=== PATIENT | female | born 1940 | race Caucasian/White ===

== ENCOUNTER 2016-11-27 16:13 | Outpatient (CLI) ==
[2016-07-12 11:57] VITALS: BMI 32.3
== END 2016-11-27 16:14 | disposition home or self-care (01) ==
LOC: AMBL 16:13
PROVIDERS: ATTEND Internal Medicine
DX: R42 Dizziness and giddiness (principal); R20.0 Anesthesia of skin; L89.309 Pressure ulcer of unspecified buttock, unspecified stage; R11.0 Nausea; F41.9 Anxiety disorder, unspecified; N39.0 Urinary tract infection, site not specified; F32.9 Major depressive disorder, single episode, unspecified; Z99.81 Dependence on supplemental oxygen

== ENCOUNTER 2017-05-19 13:10 | Outpatient (CLI) ==
[2016-07-12 11:57] VITALS: BMI 32.3
[2017-05-19 13:33] LABS: HEMATOCRIT 33.3 % (37.0-47.0); HEMOGLOBIN 11.6 g/dl (12.0-16.0); MEAN CORPUSCULAR HEMOGLOBIN 30.9 pg (27.0-31.0); MEAN CORPUSCULAR HGB CONC 34.8 (31.8-35.4); MEAN CORPUSCULAR VOLUME 88.8 fl (81.0-99.0); RED BLOOD COUNT 3.75 10^6/ul (4.20-5.40); WHITE BLOOD COUNT 13.19 K/ul (4.6-10.2)
[2017-05-19 14:15] LABS: ANION GAP 14.9; CALCIUM 8.9 mg/dL (8.2-10.2); POTASSIUM 3.9 mmol/L (3.5-5.10)
== END 2017-05-19 13:11 | disposition home or self-care (01) ==
LOC: LAB 13:10
PROVIDERS: ATTEND Internal Medicine Nephrology
DX: N18.3 Chronic kidney disease, stage 3 (moderate) (principal)
CPT/HCPCS: 36415; 80048; 85027

== ENCOUNTER 2017-05-23 14:53 | Outpatient (CLI) ==
[2017-05-23 15:07] VITALS: BMI 30.5
== END 2017-05-23 14:54 | disposition home or self-care (01) ==
LOC: DIETCN 14:53
PROVIDERS: ATTEND Psychiatry & Neurology Psychiatry
DX: F33.2 Major depressive disorder, recurrent severe without psychotic features (principal); F41.9 Anxiety disorder, unspecified; F01.50 Vascular dementia, unspecified severity, without behavioral disturbance, psychotic disturbance, mood disturbance, and anxiety; Z79.899 Other long term (current) drug therapy

== ENCOUNTER 2017-05-25 22:42 | Outpatient (CLI) | END 2017-05-25 22:43 | disposition home or self-care (01) | LOC: AMBL 22:42 | PROVIDERS: ATTEND Emergency Medicine | DX: R10.9 Unspecified abdominal pain (principal); R06.9 Unspecified abnormalities of breathing; F41.9 Anxiety disorder, unspecified; G47.00 Insomnia, unspecified; J44.9 Chronic obstructive pulmonary disease, unspecified; I50.9 Heart failure, unspecified; E11.9 Type 2 diabetes mellitus without complications ==

== ENCOUNTER 2017-06-09 12:30 | Outpatient (RCR) ==
[2016-07-12 11:57] VITALS: BMI 32.3
== END 2017-06-12 ==
LOC: NEWBEG 12:30
PROVIDERS: ATTEND Psychiatry & Neurology Psychiatry
DX: F33.2 Major depressive disorder, recurrent severe without psychotic features (principal); F41.9 Anxiety disorder, unspecified; F01.50 Vascular dementia, unspecified severity, without behavioral disturbance, psychotic disturbance, mood disturbance, and anxiety
CPT/HCPCS: 36415; 80048; 85027; 90792; 90837; 97802

== ENCOUNTER 2017-06-11 20:48 | Outpatient (CLI) | END 2017-06-11 20:49 | LOC: AMBL 20:48 | PROVIDERS: ATTEND Family Medicine | DX: R53.1 Weakness (principal); R68.89 Other general symptoms and signs ==

== ENCOUNTER 2017-06-19 13:21 | Outpatient (CLI) ==
[2017-06-19 13:39] LABS: ANION GAP 14.7; BUN/CREATININE RATIO 21.05; CALCIUM 9.2 mg/dL (8.2-10.2); CREATININE 1.52 mg/dL (0.60-1.30); POTASSIUM 4.7 mmol/L (3.5-5.10)
== END 2017-06-19 13:22 | disposition home or self-care (01) ==
LOC: NONPT 13:21
PROVIDERS: ATTEND Family Medicine
DX: E87.0 Hyperosmolality and hypernatremia (principal)
CPT/HCPCS: 80048

== ENCOUNTER 2017-06-22 12:46 | Outpatient (CLI) ==
[2017-06-22 13:04] LABS: ANION GAP 16.9; BUN/CREATININE RATIO 22.72; CALCIUM 9.8 mg/dL (8.2-10.2); CREATININE 1.1 mg/dL (0.60-1.30); POTASSIUM 3.9 mmol/L (3.5-5.10)
== END 2017-06-22 12:47 | disposition home or self-care (01) ==
LOC: NONPT 12:46
PROVIDERS: ATTEND Family Medicine
DX: R10.9 Unspecified abdominal pain (principal); E87.0 Hyperosmolality and hypernatremia
CPT/HCPCS: 80048

== ENCOUNTER 2017-06-26 14:59 | Outpatient (CLI) ==
[2017-06-26] MEDS ORDERED: SODIUM CHLORIDE 1,000 ML IV SCH (16:00)
[2017-06-26 16:01] LABS: ALBUMIN 4.2 g/dL (3.4-5.0); ALBUMIN/GLOBULIN RATIO 0.91; ANION GAP 13.2; BILIRUBIN,TOTAL 0.41 mg/dL (0.00-1.20); BUN/CREATININE RATIO 14.28; CALCIUM 10.7 mg/dL (8.2-10.2); CREATININE 1.26 mg/dL (0.60-1.30); POTASSIUM 4.2 mmol/L (3.5-5.10); TOTAL PROTEIN 8.8 g/dL (5.8-8.1)
[2017-06-26 16:12] VITALS: TEMP 97.8
[2017-06-26 17:11] VITALS: BP 182/100
== END 2017-06-26 15:00 | disposition home or self-care (01) ==
LOC: OUTPT 14:59
PROVIDERS: ATTEND Family Medicine
DX: N18.3 Chronic kidney disease, stage 3 (moderate) (principal); E87.1 Hypo-osmolality and hyponatremia; R11.2 Nausea with vomiting, unspecified
CPT/HCPCS: 36415; 80053; 96360; 96361

== ENCOUNTER 2017-07-07 12:00 | Outpatient (RCR) | END 2017-07-13 | LOC: NEWBEG 12:00 | PROVIDERS: ATTEND Psychiatry & Neurology Psychiatry | DX: F01.50 Vascular dementia, unspecified severity, without behavioral disturbance, psychotic disturbance, mood disturbance, and anxiety (principal); F33.2 Major depressive disorder, recurrent severe without psychotic features; F41.9 Anxiety disorder, unspecified | CPT/HCPCS: 90834; 99213 ==

== ENCOUNTER 2017-07-20 12:08 | Outpatient (CLI) ==
[2017-07-20 12:30] LABS: ANION GAP 15.5; BUN/CREATININE RATIO 20.72; CALCIUM 9.4 mg/dL (8.2-10.2); CREATININE 1.11 mg/dL (0.60-1.30); POTASSIUM 4.5 mmol/L (3.5-5.10)
== END 2017-07-20 12:09 | disposition home or self-care (01) ==
LOC: NONPT 12:08
PROVIDERS: ATTEND Family Medicine
DX: I13.0 Hypertensive heart and chronic kidney disease with heart failure and stage 1 through stage 4 chronic kidney disease, or unspecified chronic kidney disease (principal); N18.9 Chronic kidney disease, unspecified; I50.9 Heart failure, unspecified
CPT/HCPCS: 80048

== ENCOUNTER 2017-07-27 19:21 | Outpatient (CLI) | END 2017-07-27 19:22 | disposition home or self-care (01) | LOC: AMBL 19:21 | PROVIDERS: ATTEND Family Medicine | DX: M54.2 Cervicalgia (principal); R06.4 Hyperventilation; F41.9 Anxiety disorder, unspecified ==

== ENCOUNTER 2017-07-31 14:43 | Outpatient (CLI) ==
[2017-07-31 15:11] LABS: ANION GAP 16.6; BUN/CREATININE RATIO 26.85; CALCIUM 9.5 mg/dL (8.2-10.2); CREATININE 1.08 mg/dL (0.60-1.30); POTASSIUM 4.6 mmol/L (3.5-5.10)
== END 2017-07-31 14:44 | disposition home or self-care (01) ==
LOC: NONPT 14:43
PROVIDERS: ATTEND Family Medicine
DX: I10 Essential (primary) hypertension (principal)
CPT/HCPCS: 80048

== ENCOUNTER 2017-08-04 12:00 | Outpatient (RCR) | END 2017-08-12 | LOC: NEWBEG 12:00 | PROVIDERS: ATTEND Psychiatry & Neurology Psychiatry | DX: F01.50 Vascular dementia, unspecified severity, without behavioral disturbance, psychotic disturbance, mood disturbance, and anxiety (principal); F33.2 Major depressive disorder, recurrent severe without psychotic features; F41.9 Anxiety disorder, unspecified | CPT/HCPCS: 90837; 99213 ==

== ENCOUNTER 2017-08-07 11:49 | Outpatient (CLI) ==
[2017-08-07 11:57] LABS: BASOPHILS # (AUTO) 0.1 K/uL (0-0.2); BASOPHILS % (AUTO) 0.6 % (0.0-3.0); EOSINOPHILS # (AUTO) 0.4 K/ul (0.0-0.7); EOSINOPHILS % (AUTO) 3.1 % (0.0-7.0); HEMATOCRIT 35.7 % (37.0-47.0); HEMOGLOBIN 12.2 g/dl (12.0-16.0); IMMATURE GRANULOCYTE % (AUTO) 0.4 % (0.0-5.0); LYMPHOCYTES # (AUTO) 1.7 K/uL (0.60-3.4); LYMPHOCYTES % (AUTO) 13.4 (10.0-50.0); MEAN CORPUSCULAR HEMOGLOBIN 30.4 pg (27.0-31.0); MEAN CORPUSCULAR HGB CONC 34.2 (31.8-35.4); MONOCYTES # (AUTO) 0.9 K/uL (0.4-2.0); MONOCYTES % (AUTO) 7.2 (0-10); NEUTROPHILS # (AUTO) 9.3 K/ul (2.0-6.9); NEUTROPHILS % (AUTO) 75.3; PLATELET COUNT 264 10^3/uL (140-440); RED BLOOD COUNT 4.01 10^6/ul (4.20-5.40)
[2017-08-07 12:18] LABS: ALBUMIN 3.1 g/dL (3.4-5.0); ALBUMIN/GLOBULIN RATIO 0.89; BILIRUBIN,TOTAL 0.33 mg/dL (0.00-1.20); BUN/CREATININE RATIO 26.73; CALCIUM 9.3 mg/dL (8.2-10.2); CREATININE 1.01 mg/dL (0.60-1.30); POTASSIUM 4.9 mmol/L (3.5-5.10); TOTAL PROTEIN 6.6 g/dL (5.8-8.1)
[2017-08-07 12:19] LABS: ANION GAP 16.9
== END 2017-08-07 11:50 | disposition home or self-care (01) ==
LOC: NONPT 11:49
PROVIDERS: ATTEND Family Medicine
DX: I12.9 Hypertensive chronic kidney disease with stage 1 through stage 4 chronic kidney disease, or unspecified chronic kidney disease (principal); N18.9 Chronic kidney disease, unspecified; M54.2 Cervicalgia
CPT/HCPCS: 80053; 85025

== ENCOUNTER 2017-08-15 22:45 | Outpatient (CLI) | END 2017-08-15 22:46 | disposition left against medical advice (07) | LOC: AMBL 22:45 | PROVIDERS: ATTEND Family Medicine | DX: M54.2 Cervicalgia (principal); F41.9 Anxiety disorder, unspecified ==

== ENCOUNTER 2017-08-19 12:30 | Outpatient (CLI) | END 2017-08-19 12:31 | disposition short-term general hospital (02) | LOC: AMBL 12:30 | PROVIDERS: ATTEND Internal Medicine Geriatric Medicine | DX: M54.2 Cervicalgia (principal); M54.9 Dorsalgia, unspecified; G89.29 Other chronic pain; R11.0 Nausea ==

== ENCOUNTER 2017-09-29 11:00 | Outpatient (RCR) | END 2017-10-12 | LOC: NEWBEG 11:00 | PROVIDERS: ATTEND Psychiatry & Neurology Psychiatry | DX: F01.50 Vascular dementia, unspecified severity, without behavioral disturbance, psychotic disturbance, mood disturbance, and anxiety (principal); F33.2 Major depressive disorder, recurrent severe without psychotic features; F41.9 Anxiety disorder, unspecified | CPT/HCPCS: 90834; 99213 ==

== ENCOUNTER 2017-10-20 09:00 | Outpatient (RCR) | END 2017-11-12 | LOC: NEWBEG 09:00 | PROVIDERS: ATTEND Psychiatry & Neurology Psychiatry | DX: F01.50 Vascular dementia, unspecified severity, without behavioral disturbance, psychotic disturbance, mood disturbance, and anxiety (principal); F33.2 Major depressive disorder, recurrent severe without psychotic features; F41.9 Anxiety disorder, unspecified | CPT/HCPCS: 90837; 99213 ==

== ENCOUNTER 2017-11-14 08:34 | Outpatient (RCR) | END 2017-12-13 | LOC: NEWBEG 08:34 | PROVIDERS: ATTEND Psychiatry & Neurology Psychiatry | DX: F01.50 Vascular dementia, unspecified severity, without behavioral disturbance, psychotic disturbance, mood disturbance, and anxiety (principal); F33.2 Major depressive disorder, recurrent severe without psychotic features; F41.9 Anxiety disorder, unspecified | CPT/HCPCS: 90853 ==

== ENCOUNTER 2018-01-01 21:37 | Outpatient (CLI) | END 2018-01-01 21:38 | disposition E | LOC: AMBL 21:37 | PROVIDERS: ATTEND Internal Medicine Geriatric Medicine ==